=== PATIENT | female | born 1985 | race Caucasian/White ===

== ENCOUNTER 2021-12-21 05:50 | Inpatient (IN) | payer BC, SELFPAY ==
[2021-12-20 18:10] LABS: HCG,QUAL RESULT NEGATIVE (NEGATIVE)
[~2021-12-21] VITALS: Ht 160 cm; Wt 84.4 kg
[2021-12-21] MEDS ORDERED: BUPIVACAINE LIPOSOME/PF 266 MG/20 ML VIAL INFIL ONE (06:56)
[2021-12-21] MEDS ORDERED: WATER FOR IRRIGATION,STERILE 1,000 ML IRRIG.SOLN IR ONE (07:47)
[2021-12-21] MEDS ORDERED: LR 1,000 ML IV.SOLN IV ONE (07:47)
[2021-12-21] MEDS ORDERED: fentaNYL CITRATE/PF 100 MCG/2 ML AMP ONE (07:47)
[2021-12-21] MEDS ORDERED: SUCCINYLCHOLINE CHLORIDE 20 MG/ML(QUELICIN) ONE (07:47)
[2021-12-21] MEDS ORDERED: SUGAMMADEX SODIUM 200 MG/2 ML VIAL IV ONE (07:47)
[2021-12-21] MEDS ORDERED: PROPOFOL 200MG/ 20ML VIAL (DIPRIVAN) IV ONE (07:47)
[2021-12-21] MEDS ORDERED: KETOROLAC TROMETHAMINE 30 MG VIAL ONE (07:47)
[2021-12-21] MEDS ORDERED: NS IRRIG SOLN 1000 ML IR ONE (07:47)
[2021-12-21] MEDS ORDERED: HYDROmorphone 2 MG/ML VIAL ONE (07:47)
[2021-12-21] MEDS ORDERED: METOCLOPRAMIDE HCL 10 MG/2 ML VIAL ONE (07:47)
[2021-12-21] MEDS ORDERED: DEXAMETHASONE SOD PHOSPHATE 4 MG/ML VIAL ONE (07:47)
[2021-12-21] MEDS ORDERED: ROCURONIUM BROMIDE 10 MG/ML (ZEMURON) ONE (07:47)
[2021-12-21] MEDS ORDERED: DESFLURANE 15 MIN GAS INH ONE (07:47)
[2021-12-21] MEDS ORDERED: HYDROmorphone 1 MG/ML INJ. CARTRIDGE IVP PRN ×2 (08:00)
[2021-12-21] MEDS ORDERED: OXYCODONE/ACETAMINOPHEN 5-325 TABLET PO PRN ×2 (08:00)
[2021-12-21] MEDS ORDERED: ONDANSETRON HCL 4 MG/2 ML VIAL IVP PRN ×2 (08:00)
[2021-12-21] MEDS ORDERED: NALOXONE HCL 0.4 MG/ML AMP (NARCAN) IVP PRN ×2 (08:00)
[2021-12-21] MEDS ORDERED: LR 1,000 ML IV SCH (08:00)
[2021-12-21] MEDS ORDERED: HYDROmorphone 2 MG/ML VIAL IVP PRN (08:00)
[2021-12-21] MEDS ORDERED: CYAN100010 PO (08:07)
[2021-12-21] MEDS ORDERED: ASCO500T20 PO (08:07)
[2021-12-21] MEDS ORDERED: FERR236T3 PO (08:07)
[2021-12-21 09:10] VITALS: BP_SYST 129
[2021-12-21] MEDS: HYDROmorphone 2 MG/ML VIAL IVP PRN ×3 (09:15→09:48)
[2021-12-21] MEDS ORDERED: HYDROmorphone 1 MG/ML INJ. CARTRIDGE ONE ×2 (09:15→09:48)
[2021-12-21] MEDS ORDERED: ACETAMINOPHEN I.V. 1000 MG 100 ML IV ONE (09:16)
[2021-12-21] MEDS: DOCUSATE SODIUM 100 MG CAPSULE PO SCH (12:03)
[2021-12-21] MEDS: KETOROLAC TROMETHAMINE 30 MG VIAL IVP PRN (13:27)
[2021-12-21] MEDS: SIMETHICONE 80 MG TAB.CHEW PO PRN (13:27)
[2021-12-21] MEDS: IBUPROFEN 800 MG TABLET PO PRN (15:48)
[2021-12-21] MEDS ORDERED: TEMAZEPAM 15 MG CAPSULE PO PRN (21:00)
[2021-12-22] MEDS: KETOROLAC TROMETHAMINE 30 MG VIAL IVP PRN (02:39)
[2021-12-22 07:35] LABS: BASOPHILS % (AUTO) 0.2 % (0.0-2.0); EOSINOPHILS % (AUTO) 0.1 % (0.0-4.0); HEMATOCRIT 27.5 % (36-48); HEMOGLOBIN 8.8 g/dL (12.0-16.0); LYMPHOCYTES # (AUTO) 1.5 K/uL (1.0-5.5); LYMPHOCYTES % (AUTO) 14.1 % (20.5-51.5); MEAN CORPUSCULAR HEMOGLOBIN 24 pg (27-31); MEAN CORPUSCULAR HGB CONC 32 % (32-36); MEAN CORPUSCULAR VOLUME 75 fL (79.0-98.0); MONOCYTES # (AUTO) 0.6 K/uL (0.0-1.0); MONOCYTES % (AUTO) 5.4 % (1.7-9.3); NEUTROPHILS # (AUTO) 8.3 K/uL (1.8-7.7); NEUTROPHILS % (AUTO) 80.2 % (40.0-70.0); PLATELET COUNT (AUTO) 403 K/uL (130-430); RED BLOOD CELL COUNT(AUTO) 3.66 MIL/uL (4.2-6.2); RED CELL DISTRIBUTION WIDTH 21.3 % (9.0-15.0); WHITE BLOOD COUNT (AUTO) 10.3 K/uL (4.8-10.8)
[2021-12-22] MEDS: DOCUSATE SODIUM 100 MG CAPSULE PO SCH (12:11)
[2021-12-22] MEDS: IBUPROFEN 800 MG TABLET PO PRN (12:19)
[2021-12-22] MEDS: SIMETHICONE 80 MG TAB.CHEW PO PRN (13:10)
== END 2021-12-22 16:20 | disposition home or self-care (01) | DRG 743 ==
LOC: SMU 05:50 → SPU 05:50 → UNDOADMIN 05:50 → SPU 08:25
PROVIDERS: ADMIT Obstetrics & Gynecology; ATTEND Obstetrics & Gynecology
PROC: 0UT90ZL Resection of Uterus, Supracervical, Open Approach (ICD-10-PCS; principal; 2021-12-21 07:30)
DX: D25.1 Intramural leiomyoma of uterus (principal); N92.0 Excessive and frequent menstruation with regular cycle; Z20.822 Contact with and (suspected) exposure to COVID-19; D64.9 Anemia, unspecified; Z98.891 History of uterine scar from previous surgery; Z83.3 Family history of diabetes mellitus; Z82.49 Family history of ischemic heart disease and other diseases of the circulatory system; Z83.2 Family history of diseases of the blood and blood-forming organs and certain disorders involving the immune mechanism
CPT/HCPCS: 36415; 84703; 85025; 86886; 86900; 86901; 87081; 88307; 93005; C9290; J0131; J0330; J1100; J1170; J1885; J2704; J2765; J3010; J3490; J7120